=== PATIENT | female | born 1985 | race African-American/Black ===

== ENCOUNTER 2016-08-18 05:35 | Inpatient (IN) | payer MEDICAID ==
[~2016-08-18] VITALS: Ht 157.5 cm; Wt 79.4 kg
--- NOTE | ~2016-08-18 | CO ---
ADMIT: 08/18/2016 RM/LOC: 223 [facility] MR#: [id number] [address] [place] [id number] CECY STINSON [address] [place] [id number] Consultation Report SEX: F AGE: 31 : 1985 DATE OF CONSULTATION: 08/18/2016 ATTENDING PHYSICIAN: Shay Cotto MD CONSULTING PHYSICIAN: Shay Cotto MD PRINCIPAL DIAGNOSES: 1. Intrauterine at 40-1/2 weeks' estimated gestational age. 2. History of previous section x2. HISTORY OF PRESENT ILLNESS: The patient is a 31-year-old female, 3, para 2-0-1-2, who presents at 40-1/2 weeks' estimated gestational age for elective repeat low transverse section. The patient was followed through the course of her at [facility]. She was initially interested in a vaginal after . She had a consultation with the product development engineer-gynecologists in [place], where they had determined she was not a candidate for a vaginal after . She presents today for consultation regarding a repeat . PREVIOUS MEDICAL HISTORY: She denies any significant previous medical history. SOCIAL HISTORY: She does not smoke, drink, or use drugs. ALLERGIES: SHE HAS NO KNOWN MEDICAL ALLERGIES. PHYSICAL EXAMINATION: GENERAL: The patient is a well-developed, well- nourished female, alert and oriented, in no apparent distress with normal stream of thought and content of speech. HEART: Regular rate and rhythm without murmurs, rubs, or gallops. LUNGS: Clear to auscultation bilaterally. ADMIT: 08/18/2016 RM/LOC: 223 [facility] MR#: [id number] [address] [place] [address] [place], [place] [id number] CECY STINSON [address] [place] [address] Consultation Report SEX: F AGE: 31 : 1985 ABDOMEN: Soft with positive bowel sounds. Gravid. ASSESSMENT: Term intrauterine with history of previous section x2. We discussed management options and the patient opts for repeat low transverse section. We discussed risks involved with surgery including risks of infection, risk of bleeding with possible need for blood transfusion and the attendant infectious risks inherent in blood transfusion. We also discussed risk of damage to other organs including, but not limited to, bowel, bladder, major blood vessels, and ureters with possible need for additional surgery and repair should such damage occur. The patient voiced understanding of the risks, benefits, and alternatives to the proposed procedure and desires to proceed with repeat low transverse section. Shay Cotto MD/ kikol JOB #: [id number] CC: Shay Cotto MD, Attending Physician Shay Cotto MD, Family Physician
[~2016-08-18 05:35] MED LIST: PRENATAL VIT1 TAB PO; UNISOM25 MG PO; VITAMIN B-625 MG PO; ZANTAC DPS150 MG PO
[2016-08-20] MEDS ORDERED: PRILOSEC DPS20 MG PO (15:53)
[2016-08-20] MEDS ORDERED: PRENATAL VIT1 TAB PO (15:53)
[2016-08-20] MEDS ORDERED: PERCOCET 5 DPS1 TAB PO (15:54)
[2016-08-20] MEDS ORDERED: COLACE-DPS100 MG PO (15:54)
[2016-08-20] MEDS ORDERED: MYLICON DPS80 MG PO (15:54)
[2016-08-20] MEDS ORDERED: MOTRIN-DPS800 MG PO (15:54)
--- NOTE | 2016-08-22 08:47 | HP ---
ADMIT: 08/18/2016 RM/LOC: 223 [facility] MR#: [id number] [address] [facility] [address] [place], [place] [phone] CECY STINSON [address] [place] [address] History and Physical SEX: F AGE: 31 : 1985 DATE OF SERVICE: This H and P is being dictated for her planned that is scheduled for August 18. CHIEF COMPLAINT: Repeat low-transverse section. HISTORY OF PRESENT ILLNESS: The patient is a 31-year-old, Finnish female, 3, para 2, with intrauterine at 40 weeks and 4 days by LMP consistent with a first-trimester ultrasound. Her has been complicated by hyperemesis gravidarum in the first trimester. She did require hospitalization overnight during early for IV fluid hydration and nausea control. Upon discharge from the hospital, she was started on Zofran and Diclegis and did much better throughout the rest of her . Nausea and vomiting did resolve by her second trimester. Around 21 weeks, she developed some acid reflux and was started on omeprazole and ranitidine. At 34 weeks, she was diagnosed with a urinary tract infection with a negative urine culture. She was treated with Macrobid for that infection and did well. Overall, her was noneventful. At 26 weeks, she informed me that she was interested in trying a TOLAC despite 2 previous C-sections. She was referred to Dr. Ko in [place] and her records were sent there at that time. She continued to follow with us in clinic despite following with Dr. Ko as well. At 40 weeks and 3 days' gestation, Dr. Ko called me and stated that she was not a good TOLAC candidate and asked that she be sent back to us for a planned repeat low transverse section. PAST MEDICAL HISTORY: 1. Hyperemesis gravidarum in first trimester. 2. GERD. PAST SURGICAL HISTORY: 1. Cholecystectomy. 2. Two previous sections. MEDICATIONS: 1. vitamin. 2. Ranitidine 150 mg one tablet b.i.d. 3. Omeprazole 20 mg one tab p.o. daily. ALLERGIES: NO KNOWN DRUG ALLERGIES. FAMILY HISTORY: None. SOCIAL HISTORY: The patient denies alcohol, tobacco, or illegal drug use. She is and has 2 young children at home. REVIEW OF SYSTEMS: A 10-point review of systems was reviewed and negative. The patient denies any vaginal bleeding or loss of fluid. She does note good movement. ADMIT: 08/18/2016 RM/LOC: 223 [facility] MR#: [id number] [address] [place] [phone] CECY STINSON [address] [place] [address] History and Physical SEX: F AGE: 31 : 1985 PHYSICAL EXAMINATION: GENERAL: A well-developed, well-nourished, Finnish female. She is alert and oriented x3. No acute distress. VITAL SIGNS: Blood pressure 90/50, pulse 86, respirations 16, temp 98, saturating 99% on room air. HEENT: Head is normocephalic, atraumatic. Pupils are equal, round, and reactive to light. NECK: Supple. Trachea is midline. Thyroid is nonpalpable. HEART: Regular rate and rhythm. LUNGS: Clear to auscultation bilaterally. ABDOMEN: Soft, nontender, and gravid. EXTREMITIES: Show no clubbing, cyanosis, or edema. NEURO: Cranial nerves II through XII are grossly intact. GENITOURINARY: Sterile vaginal exam reveals the cervix to be closed, about 20% effaced, and -1 station. heart tones were 140 beats per minute. OBSTETRICAL LABORATORY DATA: Blood type A positive, hepatitis B antigen negative, antibody screen negative, rubella immune, syphilis negative, HIV negative, gonorrhea and Chlamydia negative. She did pass her 1 hour diabetic screen with a blood glucose of 101. She is group B strep positive. ASSESSMENT AND PLAN: 1. This is a 31-year-old, 3, para 2, with intrauterine at 40 weeks 4 days by LMP consistent with a first trimester ultrasound, here for repeat low transverse section. 2. History of 2 previous C-sections. 3. Group B streptococcus positive. 4. Gastroesophageal reflux disease. 5. Hyperemesis gravidarum in the first trimester. Silvia Multani, DO Resident / Dia Menard MD / modl JOB #: [id number] CC: Shay Cotto MD, Attending Physician Shay Cotto MD, Family Physician
--- NOTE | 2016-09-18 08:28 | OR ---
ADMIT: 08/18/2016 RM/LOC: 223 [facility] MR#: [id number] [address] [facility] [address] [place], [place] [id number] [place] CECY Ferrell [address] [place] [address] Operative/Delivery Room Report SEX: F AGE: 31 : 1985 SURGERY DATE: 08/18/2016 SURGEON: Shay Cotto MD PRINCIPAL DIAGNOSES: 1. Term intrauterine . 2. History of previous section x2. POSTOPERATIVE DIAGNOSES: 1. Term intrauterine . 2. History of previous section x2. PROCEDURE: Repeat low-transverse section. ASSISTANTS: Dia Menard MD and Silvia Multani DO Resident. INDICATION: Patient is a 31-year-old female 3, para 2-0-0-2, who presents at 41 weeks' estimated gestational age for elective repeat low-transverse section. ANESTHESIA: Spinal. ESTIMATED BLOOD LOSS: 800 mL. COMPLICATIONS: None. FINDINGS: Viable female infant, 7 pounds 3 ounces with scores of 8 at 1 and 9 at 5 minutes with a nuchal cord x3. PROCEDURE IN DETAIL: The patient was taken to the operating room. She was prepped and draped in the usual fashion in dorsal supine position with a leftward tilt. A transverse skin incision was made with a scalpel and carried sharply to the underlying layer of fascia. The fascia was nicked in the midline. The fascial incision was extended laterally with Wise scissors. The fascia was dissected off the underlying rectus muscles. The rectus muscles were in the midline. The parietal peritoneum was identified, tented up with Naye clamps, and entered sharply with Wise scissors. This incision was then extended superiorly and inferiorly with good visualization of bladder. Bladder blade was then inserted and a bladder flap was created with a combination of sharp and blunt dissection. The uterus was nicked in the midline. The uterine incision was extended laterally with blunt digital dissection. Infant's head was then delivered atraumatically. Nuchal cord x3 was noted and was reduced without difficulty. The remainder of the was delivered. Cord was clamped x2, cut, and the infant was handed off to the waiting nursing staff. Placenta was then delivered intact with normal appearance. The uterus was then exteriorized, cleared of all clots and debris. The endometrial cavity was then swept with a moist laparotomy sponge to remove any remaining products of conception. The uterine incision was then ADMIT: 08/18/2016 RM/LOC: 223 [facility] MR#: [id number] [address] [address] CECY STINSON [address] [place] [address] Operative/Delivery Room Report SEX: F AGE: 31 : 1985 reapproximated with a running locked length of 0 Vicryl. A single figure-of- eight stitch of 0 Vicryl was then used to obtain good hemostasis. The patient's abdomen was then suctioned. The uterus was returned to the patient's abdomen. The paracolic gutters were cleared of all clots and debris. Uterine incision was again inspected and noted to be hemostatic. Subfascial compartments were then inspected and noted to be hemostatic. The fascia was reapproximated with a running length of 0 Vicryl. Subcutaneous tissue was then inspected and noted to be hemostatic and the subcutaneous tissue was then reapproximated with several interrupted sutures of 3-0 plain gut, and the skin was closed with Insorb subcuticular carole. The patient tolerated the procedure well and was taken to the recovery room in stable condition. All sponge, instrument, and needle counts were correct. Shay Cotto MD/ cheko QIU: 08/18/2016 08:13:11 JOB #: [id number] CC: Shay Cotto MD, Attending Physician Shay Cotto MD, Family Physician
--- NOTE | 2016-09-20 09:08 | DS ---
ADMIT: 08/18/2016 RM/LOC: 223 [facility] MR#: [id number] [address] [facility] [address] [place], [place] [address] CECY STINSON [address] [place] [address] General Discharge Summary SEX: F AGE: 31 : 1985 ADMISSION DATE: 08/18/2016 DISCHARGE DATE: 08/20/2016 FINAL DIAGNOSES: 1. Thirty-nine week intrauterine . 2. Prior section. 3. Anemia of chronic iron deficiency. 4. Gastroesophageal reflux. 5. Anemia of acute blood loss. 6. A 40-1/2 weeks gestation. REASON FOR ADMISSION: The patient is a 31-year-old 3, para 2-0-1-2 female, who presented actually 40 weeks. The patient presents at 40-1/2 weeks for elective repeat low transverse section. She had initially planned on doing a vaginal after , but was not a good candidate, so elected to do a repeat section that was arranged for August 18. HOSPITAL COURSE: The patient delivered via repeat section with Dr. Shay Cotto performing the procedure. She delivered a female with no complications. Her postop course was uncomplicated. Hemoglobin postop was 10.5, down from 11.5 on admission. She was discharged to home on 08/20/2016 on: 1. Colace 100 mg b.i.d. 2. Mylicon 80 mg t.i.d. and p.r.n. 3. vitamin 1 tab daily. 4. Omeprazole 20 mg daily. 5. Motrin 800 mg q.8 hours p.r.n. 6. Percocet 5 one to two every 4 hours as needed. 7. Lansinoh cream as needed. She will follow up with Dr. Multani in 1 week for an incision check. Dia Menard MD/ cheko JOB #: [id number] CC: Shay Cotto MD, Attending Physician Dia Menard MD, Family Physician
== END 2016-08-20 12:00 | disposition home or self-care (01) | DRG 766 ==
LOC: BC 05:35 → 2LDRP 05:35
PROVIDERS: ADMIT Obstetrics & Gynecology
PROC: 10D00Z1 Extraction of Products of Conception, Low, Open Approach (ICD-10-PCS; principal; 2016-08-18)
DX: O34.211 Maternal care for low transverse scar from previous cesarean delivery (principal); D64.9 Anemia, unspecified; O69.81X0 Labor and delivery complicated by cord around neck, without compression, not applicable or unspecified; O99.62 Diseases of the digestive system complicating childbirth; K21.9 Gastro-esophageal reflux disease without esophagitis; O90.81 Anemia of the puerperium; Z37.0 Single live birth; Z3A.40 40 weeks gestation of pregnancy